=== PATIENT | female | born 1985 | race Caucasian/White ===

== ENCOUNTER → 2019-07-11 | Emergency (ER) | payer OTHER ==
[~2019-07-11] VITALS: Ht 162.6 cm; Wt 67.6 kg
[~2019-07-11] MED LIST: CEFTIN250 MG PO; FOLIC ACID20 MG; ONDANSETRON ODT4 MG SL; PEPCID COMPLET1 EACH PO; PEPCID40 MG PO; PHENERGAN25 MG PO
== END | disposition home or self-care (01) ==
LOC: ER 21:12
DX: O21.0 Mild hyperemesis gravidarum (principal); Z34.02 Encounter for supervision of normal first pregnancy, second trimester

== ENCOUNTER 2019-11-10 13:00 | Inpatient (IN) | payer OTHER ==
[~2019-11-10] VITALS: Ht 162.6 cm; Wt 71.2 kg
[2019-11-12] MEDS ORDERED: REGLAN5 MG/5 ML PO (14:14)
== END 2019-11-15 12:57 | disposition home or self-care (01) | DRG 807 ==
LOC: LDR 11-12 12:36 → OB/GYN 11-12 12:36 → LDR 11-13 00:45 → OB/GYN 11-13 15:17 → LDR 12-06 13:00
PROVIDERS: ADMIT Obstetrics & Gynecology; ATTEND Obstetrics & Gynecology
PROC: 10E0XZZ Delivery of Products of Conception, External Approach (ICD-10-PCS; principal; 2019-11-13)
PROC: 3E033VJ Introduction of Other Hormone into Peripheral Vein, Percutaneous Approach (ICD-10-PCS; 2019-11-13)
PROC: 4A1HXFZ Monitoring of Products of Conception, Cardiac Rhythm, External Approach (ICD-10-PCS; 2019-11-13)
DX: O60.14X0 Preterm labor third trimester with preterm delivery third trimester, not applicable or unspecified (principal); Z37.0 Single live birth; Z3A.36 36 weeks gestation of pregnancy

== ENCOUNTER 2019-11-12 11:39 | Outpatient (CLI) | payer OTHER ==
[2019-11-12] MEDS ORDERED: REGLAN5 MG/5 ML PO (14:14)
== END 2019-11-12 12:35 | disposition still patient (30) ==
LOC: OBS/DEL 11:39
PROVIDERS: ATTEND Obstetrics & Gynecology
DX: O60.03 Preterm labor without delivery, third trimester (principal)